=== PATIENT | male | born 1965 | race Caucasian/White ===

== ENCOUNTER 2019-09-14 09:01 | Emergency (ER) | payer MEDICARE ==
[2019-09-14] MEDS ORDERED: Ativan 2 MG/1 ML VIAL ONE (09:12)
[2019-09-14] MEDS ORDERED: Ativan 2 MG/1 ML VIAL IV ONE (09:12)
--- NOTE | 2019-09-14 09:20 | ERPHSYRPT ---
- History of Present Illness Time Seen by Provider: 09/14/19 09:15 Source: patient, EMS Exam Limitations: clinical condition Physician History: This is a 53-year-old obese gentleman who has a history of oxygen dependent COPD and congestive heart failure who called the ambulance service to pick him up to take him to the hospital because of worsening shortness of breath that began yesterday. Patient's oxygenation was 80% on 4 L nasal cannula at home. Is not a smoker. He denies chest pain. Ordinarily, the patient gets transferred to [facility]. However he was unhappy with their care the last time and wanted transferred to [facility]. Received nitroglycerin because of his symptoms and systolic blood pressure of over 200, Solu-Medrol 125 mg intravenously and 40 mg of Lasix intravenously. Patient's oxygenation on 4 L nasal cannula improved with the above treatment and on arrival to the emergency department his oxygen saturation was 94%. Patient has a pacemaker in place. Timing/Duration: yesterday Activities at Onset: none Severity of Dyspnea-Max: moderate Severity of Dyspnea-Current: moderate Possible Cause: frequent episodes Modifying Factors: Improves With: exertion, oxygen Associated Symptoms: anxiety, No chest pain/discomfort Allergies/Adverse Reactions: No Known Drug Allergies Allergy (Unverified 09/14/19 09:24) Home Medications: Albuterol 2.5 mg/3 ml Neb [Proventil 2.5 mg/3 ml Neb] 2.5 mg IH Q6HPRN PRN 09/14/19 [History] Albuterol 8 gm Mdi Hfa [Ventolin Hfa MDI] 1 puff IH QID 09/14/19 [History] Amlodipine Besylate [Norvasc] 10 mg PO DAILY 09/14/19 [History] Aspirin EC 81 mg [Ecotrin 81 mg] 81 mg PO DAILY 09/14/19 [History] Famotidine [Pepcid] 40 mg PO DAILY 09/14/19 [History] Furosemide 40 mg [Lasix 40 MG] 40 mg PO DAILY 09/14/19 [History] Ibuprofen 600 mg PO Q6H 09/14/19 [History] Icosapent Ethyl [Vascepa] 1 gm PO BID 09/14/19 [History] Insulin Glargine,Hum.rec.anlog [Lantus Solostar] 80 units SQ HS 09/14/19 [ History] Ipratropium/Albuterol Sulfate [Combivent Inhaler] 1 each NEB QID PRN 09/14/19 [ History] Iron 65 mg PO DAILY 09/14/19 [History] Magnesium Chloride [Slow-Mag] 2 each PO DAILY 09/14/19 [History] Rosuvastatin Calcium 10 mg PO HS 09/14/19 [History] Sacubitril/Valsartan [Entresto 24 mg-26 mg Tablet] 1 each PO BID 09/14/19 [ History] Sertraline HCl 50 mg [Zoloft 50 mg Tablet] 100 mg PO DAILY 09/14/19 [History ] Suvorexant [Belsomra] 15 mg PO HS 09/14/19 [History] Travel Risk - International Travel Have you traveled outside of the country in past 3 weeks: No - Coronavirus Screening Are you exhibiting any of the following symptoms?: Yes Symptoms: Shortness of Breath Close contact with a COVID-19 positive Pt in past 14-21 Days: No - Review of Systems Constitutional: No Symptoms Eyes: No Symptoms Ears, Nose, & Throat: No Symptoms Respiratory: Dyspnea Cardiac: No Chest Pain Abdominal/Gastrointestinal: No Symptoms Genitourinary Symptoms: No Symptoms Musculoskeletal: No Symptoms Skin: No Symptoms Neurological: No Symptoms Psychological: Anxiety Endocrine: No Symptoms Hematologic/Lymphatic: No Symptoms Immunological/Allergic: No Symptoms All Other Systems: Reviewed and Negative - Past Medical History Pertinent Past Medical History: Yes Neurological History: No Pertinent History ENT History: No Pertinent History Cardiac History: Coronary Artery Disease, Hypertension Respiratory History: CHF, COPD Endocrine Medical History: No Pertinent History Musculoskeletal History: No Pertinent History GI Medical History: No Pertinent History History: No Pertinent History Psycho-Social History: No Pertinent History Male Reproductive Disorders: No Pertinent History - Past Surgical History Cardiac: Pacemaker Respiratory: No Pertinent History Gastrointestinal: No Pertinent History Genitourinary: No Pertinent History Musculoskeletal: No Pertinent History Male Surgical History: No Pertinent History - Social History Smoking Status: Never smoker - Nursing Vital Signs Nursing Vital Signs: Initial Vital Signs Temperature 99.3 F 09/14/19 09:04 Pulse Rate 106 H 09/14/19 09:04 Respiratory Rate 28 H 09/14/19 09:04 Blood Pressure 186/121 09/14/19 09:04 O2 Sat by Pulse Oximetry 98 09/14/19 09:04 Pain Scale Pain Intensity 4 - Physical Exam General Appearance: moderate distress, alert, obese Eye Exam: PERRL/EOMI, eyes nml inspection Ears, Nose, Throat Exam: hearing grossly normal, normal ENT inspection, normal pharynx Neck Exam: normal inspection, non-tender, supple, full range of motion Respiratory Exam: lungs clear, respiratory distress, airway intact, No chest tenderness, No rhonchi, No wheezing, No stridor Cardiovascular/Chest Exam: tachycardia Abdominal/Gastrointestinal Exam: soft, normal bowel sounds, No tenderness, No guarding, No rebound Rectal Exam: not done Extremity Exam: non-tender, normal range of motion, normal inspection, pedal edema (Mild bilateral ankle and feet) Neurologic Exam: alert, oriented x 3, 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 There is ventricular premature complex present and borderline T wave abnormalities.) Ordered Tests: Active Orders 24 hr Category Date Time Status Assistant Media Planner STAT Care 09/14/19 09:13 Active EKG-ER Only STAT Care 09/14/19 09:12 Active IV Insertion STAT Care 09/14/19 09:12 Active Oxygen-ED Only Nasal Cannula 6 lpm Care 09/14/19 09:02 Active Pulse Oximetry (ED) STAT Care 09/14/19 09:12 Active CHEST 1 VIEW (PORTABLE) Stat Exams 09/14/19 09:13 Completed ARTERIAL BLOOD GASES Stat Lab 09/14/19 09:50 Completed BLOOD CULTURE Stat Lab 09/14/19 10:54 Ordered CBC W DIFF Stat Lab 09/14/19 09:12 Completed CMP Stat Lab 09/14/19 09:30 Completed Lactic Acid Stat Lab 09/14/19 09:50 Completed NT PRO BNP Stat Lab 09/14/19 09:30 Completed PROTIME WITH INR Stat Lab 09/14/19 09:12 Completed TROPONIN Q3H Lab 09/14/19 09:30 Completed TROPONIN Q3H Lab 09/14/19 12:15 Ordered TROPONIN Q3H Lab 09/14/19 15:15 Ordered TROPONIN Q3H Lab 09/14/19 18:15 Ordered TROPONIN Q3H Lab 09/14/19 21:15 Ordered UA W/RFX UR CULTURE Stat Lab 09/14/19 10:00 Completed BiPap/CPAP STAT RT 09/14/19 09:12 Active Medication Summary Generic Name Dose Route Start Last Admin Trade Name Cesia PRN Reason Stop Dose Admin Ceftriaxone Sodium/Dextrose 1 g in 50 mls @ 100 mls/hr 09/14/19 10:40 10:56 Rocephin 1 Gm-D5w 50 Ml Bag IV 09/14/19 11:09 100 mls/hr STAT STA 100 mls/hr Administration Discontinued Medications Generic Name Dose Route Start Last Admin Trade Name Yevgeniyq PRN Reason Stop Dose Admin Clonidine 0.2 mg 09/14/19 09:46 09/14/19 10:09 Catapres 0.1 Mg PO 09/14/19 09:47 0.2 mg STAT ONE Administration Clonidine Confirm 09/14/19 10:07 Catapres 0.1 Mg Administered 09/14/19 10:08 Dose 0.2 mg .ROUTE .STK-MED ONE Ceftriaxone Sodium/Dextrose Confirm 09/14/19 10:53 Rocephin 1 Gm-D5w 50 Ml Bag Administered 09/14/19 10:54 Dose 1 g in 50 mls @ ud IV .STK-MED ONE Insulin Human Regular 18 unit 09/14/19 10:28 09/14/19 10:40 Novolin R IV 09/14/19 10:29 18 unit STAT ONE Administration Insulin Human Regular Confirm 09/14/19 10:36 Humulin R Administered 09/14/19 10:37 Dose 18 unit .ROUTE .STK-MED ONE Lorazepam Confirm 09/14/19 09:12 Ativan 2 Mg/1 Ml Vial Administered 09/14/19 09:13 Dose 2 mg .ROUTE .STK-MED ONE Lorazepam 1 mg 09/14/19 09:12 09/14/19 09:22 Ativan 2 Mg/1 Ml Vial IV 09/14/19 09:13 1 mg STAT ONE Administration Metoprolol Tartrate 5 mg 09/14/19 10:29 09/14/19 10:41 Lopressor 5 Mg/5 Ml Injection IV 09/14/19 10:30 5 mg STAT ONE Administration Metoprolol Tartrate Confirm 09/14/19 10:35 Lopressor 5 Mg/5 Ml Injection Administered 09/14/19 10:36 Dose 5 mg IV .STK-MED ONE Lab/Rad Data: Laboratory Result Diagrams 09/14/19 09:12 09/14/19 09:30 Laboratory Results 09/14/19 09/14/19 09/14/19 Range/Units 10:00 09:50 09:30 WBC (4.0-10.5) K/mm3 RBC (4.1-5.6) M/mm3 Hgb (12.5-18.0) gm/dl Hct (42-50) % MCV (78-100) fl MCH (26-32) pg MCHC (32-36) g/dl RDW (11.5-14.0) % Plt Count (150-450) K/mm3 MPV (7.5-11.0) fl Gran % (36.0-66.0) % Eos # (Auto) (0-0.5) Absolute Lymphs (auto) (1.0-4.6) Absolute Monos (auto) (0.0-1.3) Lymphocytes % (24.0-44.0) % Monocytes % (0.0-12.0) % Eosinophils % (0.00-5.0) % Basophils % (0.0-0.4) % Absolute Granulocytes (1.4-6.9) Basophils # (0-0.4) PT (8.83-12.87) SECONDS INR (0.8-3.0) Puncture Site VBG pCO2 61 H* (35-45) mmHg pO2 34 L* (75-100) mmHg Base Excess 7.0 H (-2.0-2.0) O2 Saturation 61.9 L (94-100) g/dF ABG pH 7.36 (7.35-7.45) ABG HCO3 34.5 H* (22-28) ABG O2 Sat (Measured) 64.1 L (95-100) % Jeff Test NOT APPLICABLE Hemoglobin 13.5 Carboxyhemoglobin 2.6 (0.0-6.9) % THgb Methemoglobin 0.8 L (1.4-1.5) % Temperature 37.0 C POC O2 Flow Rate 32 % Sodium (137-145) mmol/L Potassium 4.3 (3.5-5.1) mmol/L Chloride (98-107) mmol/L Carbon Dioxide (22-30) mmol/L Anion Gap (5-15) MEQ/L BUN (9-20) mg/dL Creatinine (0.66-1.25) mg/dL Estimated GFR ML/MIN Glucose (74-106) mg/dL Lactic Acid 2.0 (0.4-2.0) Calcium (8.4-10.2) mg/dL Total Bilirubin (0.2-1.3) mg/dL AST (17-59) U/L ALT (0-50) U/L Alkaline Phosphatase (38-126) U/L Troponin I 0.071 H* (0.000-0.034) ng/mL NT-Pro-B Natriuret Pep (0-900) pg/mL Serum Total Protein (6.3-8.2) g/dL Albumin (3.5-5.0) g/dL Urine Color STRAW (YELLOW) Urine Appearance CLEAR (CLEAR) Urine pH 6.0 (5-6) Ur Specific Clayton 1.013 (1.005-1.025) Urine Protein NEGATIVE (Negative) Urine Ketones NEGATIVE (NEGATIVE) Urine Blood NEGATIVE (0-5) Renato/ul Urine Nitrite NEGATIVE (NEGATIVE) Urine Bilirubin NEGATIVE (NEGATIVE) Urine Urobilinogen NEGATIVE (0-1) mg/dL Ur Leukocyte Esterase NEGATIVE (NEGATIVE) Urine WBC (Auto) NONE (0-5) /HPF Urine RBC (Auto) NONE (0-2) /HPF U Epithel Cells (Auto) NONE (FEW) /HPF Urine Bacteria (Auto) NONE (NEGATIVE) /HPF Urine Culture Reflexed NO (NO) Urine Glucose >=500 (NEGATIVE) mg/dL 09/14/19 09/14/19 09/14/19 Range/Units 09:30 09:12 09:12 WBC 6.6 (4.0-10.5) K/mm3 RBC 4.44 (4.1-5.6) M/mm3 Hgb 13.2 (12.5-18.0) gm/dl Hct 39.6 L (42-50) % MCV 89.2 (78-100) fl MCH 29.7 (26-32) pg MCHC 33.3 (32-36) g/dl RDW 13.7 (11.5-14.0) % Plt Count 161 (150-450) K/mm3 MPV 9.7 (7.5-11.0) fl Gran % 73.7 H (36.0-66.0) % Eos # (Auto) 0.06 (0-0.5) Absolute Lymphs (auto) 1.38 (1.0-4.6) Absolute Monos (auto) 0.27 (0.0-1.3) Lymphocytes % 21.0 L (24.0-44.0) % Monocytes % 4.1 (0.0-12.0) % Eosinophils % 0.9 (0.00-5.0) % Basophils % 0.3 (0.0-0.4) % Absolute Granulocytes 4.85 (1.4-6.9) Basophils # 0.02 (0-0.4) PT 10.2 (8.83-12.87) SECONDS INR 0.90 (0.8-3.0) Puncture Site pCO2 (35-45) mmHg pO2 (75-100) mmHg Base Excess (-2.0-2.0) O2 Saturation (94-100) g/dF ABG pH (7.35-7.45) ABG HCO3 (22-28) ABG O2 Sat (Measured) (95-100) % Jeff Test Hemoglobin Carboxyhemoglobin (0.0-6.9) % THgb Methemoglobin (1.4-1.5) % Temperature C POC O2 Flow Rate % Sodium 137 (137-145) mmol/L Potassium 4.4 (3.5-5.1) mmol/L Chloride 95 L (98-107) mmol/L Carbon Dioxide 31 H (22-30) mmol/L Anion Gap 15.1 H (5-15) MEQ/L BUN 19 (9-20) mg/dL Creatinine 0.80 (0.66-1.25) mg/dL Estimated GFR > 60.0 ML/MIN Glucose 596 H* (74-106) mg/dL Lactic Acid (0.4-2.0) Calcium 9.6 (8.4-10.2) mg/dL Total Bilirubin 0.60 (0.2-1.3) mg/dL AST 27 (17-59) U/L ALT 26 (0-50) U/L Alkaline Phosphatase 73 (38-126) U/L Troponin I (0.000-0.034) ng/mL NT-Pro-B Natriuret Pep 1390 H (0-900) pg/mL Serum Total Protein 6.8 (6.3-8.2) g/dL Albumin 4.0 (3.5-5.0) g/dL Urine Color (YELLOW) Urine Appearance (CLEAR) Urine pH (5-6) Ur Specific Clayton (1.005-1.025) Urine Protein (Negative) Urine Ketones (NEGATIVE) Urine Blood (0-5) Renato/ul Urine Nitrite (NEGATIVE) Urine Bilirubin (NEGATIVE) Urine Urobilinogen (0-1) mg/dL Ur Leukocyte Esterase (NEGATIVE) Urine WBC (Auto) (0-5) /HPF Urine RBC (Auto) (0-2) /HPF U Epithel Cells (Auto) (FEW) /HPF Urine Bacteria (Auto) (NEGATIVE) /HPF Urine Culture Reflexed (NO) Urine Glucose (NEGATIVE) mg/dL - Progress Progress: improved, re-examined Air Movement: good Progress Note: 09/14/19 10:52 Chest x-ray reveals bibasilar infiltrates/atelectasis. There are small bibasilar pleural effusions present. There is cardiomegaly consistent with congestive heart failure. Superimposed pneumonia cannot be excluded. 09/14/19 11:[address] Willett at [facility] emergency department. I reviewed the patient history, condition, laboratory data, EKG results and x-ray findings with him. He accepts the patient for transfer. Blood Culture(s) Obtained: Yes Antibiotics given: Yes Counseled pt/family regarding: lab results, diagnosis, rad results - Departure Departure Disposition: Transfer Clinical Impression: Hypoxia, Hypertensive urgency, CHF (congestive heart failure), Elevated troponin, Pneumonia, Hyperglycemia Condition: Fair Critical Care Time: Yes Critical Care Time(excluding separately billable procedures): Critical 30-74 mins Referrals: EBENEZER WEST NP [Primary Care Provider] - Instructions: Heart Failure
[2019-09-14 09:46] LABS: INR 0.9 (0.8-3.0); PROTIME 10.2 SECONDS (8.83-12.87)
[2019-09-14] MEDS ORDERED: Catapres 0.1 MG PO ONE (09:46)
[2019-09-14 09:53] LABS: Absolute Neutrophil Ct (ANC) 4.85 (1.4-6.9); BASOPHIL % 0.3 % (0.0-0.4); Basophil (Absolute #) 0.02 (0-0.4); Eosinophil % 0.9 % (0.00-5.0); Eosinophil (Absolute #) 0.06 (0-0.5); Hematocrit 39.6 % (42-50); Hemoglobin 13.2 gm/dl (12.5-18.0); Lymphocyte (Absolute #) 1.38 (1.0-4.6); Mean Cell Volume 89.2 fl (78-100); Mean Corpuscular Hemoglobin 29.7 pg (26-32); Mean Corpuscular Hgb Concent. 33.3 g/dl (32-36); Mean Platelet Volume 9.7 fl (7.5-11.0); Monocyte (Absolute #) 0.27 (0.0-1.3); Monocytes % 4.1 % (0.0-12.0); Neutrophil % 73.7 % (36.0-66.0); Platelet Count 161 K/mm3 (150-450); Red Blood Count 4.44 M/mm3 (4.1-5.6); Red Cell Distribution Width 13.7 % (11.5-14.0); White Blood Count 6.6 K/mm3 (4.0-10.5)
[2019-09-14 09:56] LABS: ABG HEMOGLOBIN 13.5; ABG POTASSIUM 4.3 (3.5-5.1); ARTERIAL BLD GAS O2 SATURATION 64.1 % (95-100); ARTERIAL BLOOD GAS FIO2 32 %; ARTERIAL BLOOD GAS pH 7.36 (7.35-7.45); CARBOXYHEMOGLOBIN 2.6 % THgb (0.0-6.9); HCO3- 34.5 (22-28); HGB O2 SAT 61.9 g/dF (94-100); Methhemoglobin 0.8 % (1.4-1.5)
[2019-09-14 09:57] LABS: ABG SITE VBG; ARTERIAL BLOOD GAS PCO2 61 mmHg (35-45); ARTERIAL BLOOD GAS PO2 34 mmHg (75-100)
--- NOTE | 2019-09-14 09:57 | XRAY ---
Indication: Short of breath. Comparison: None Portable chest demonstrates borderline cardiomegaly with left-sided AICD, bibasilar infiltrates/atelectasis, and small bibasilar effusions. Rule out cardiac decompensation/CHF. Superimposed pneumonia not completely excluded. Bony thorax intact with mild degenerative changes.
[2019-09-14 10:00] LABS: ALKALINE PHOSPHATASE 73 U/L (38-126); ANION GAP 15.1 MEQ/L (5-15); BLOOD UREA NITROGEN 19 mg/dL (9-20); CHLORIDE 95 mmol/L (98-107); Calcium 9.6 mg/dL (8.4-10.2); Carbon Dioxide 31 mmol/L (22-30); NT PRO BNP 1390 pg/mL (0-900); Potassium 4.4 mmol/L (3.5-5.1); SGOT/AST 27 U/L (17-59); SGPT/ALT 26 U/L (0-50); SODIUM 137 mmol/L (137-145); Total Protein 6.8 g/dL (6.3-8.2)
[2019-09-14 10:01] LABS: Glucose 596 mg/dL (74-106)
[2019-09-14 10:06] LABS: Appearance CLEAR (CLEAR); Bilirubin NEGATIVE (NEGATIVE); Blood NEGATIVE Ery/ul (0-5); Glucose >=500 mg/dL (NEGATIVE); Ketones NEGATIVE (NEGATIVE); Leukocyte Esterase NEGATIVE (NEGATIVE); Nitrite NEGATIVE (NEGATIVE); Protein,Urine Dip NEGATIVE (Negative); Specific Gravity 1.013 (1.005-1.025); Urobilinogen NEGATIVE mg/dL (0-1)
[2019-09-14] MEDS ORDERED: Catapres 0.1 MG ONE (10:07)
[2019-09-14] MEDS ORDERED: NovoLIN R IV ONE (10:28)
[2019-09-14] MEDS ORDERED: LOPRESSOR 5 MG/5 ML INJECTION IV ONE ×2 (10:29→10:35)
[2019-09-14] MEDS ORDERED: HUMULIN R ONE (10:36)
[2019-09-14] MEDS ORDERED: ROCEPHIN 1 Gm-D5w 50 ml Bag** 1 G/50 ML IVPB IV STA (10:40)
[2019-09-14 10:51] VITALS: O2SAT 97
[2019-09-14] MEDS ORDERED: ROCEPHIN 1 Gm-D5w 50 ml Bag** 1 G/50 ML IVPB IV ONE (10:53)
[2019-09-14 11:27] VITALS: BP 164/107; PULSE 108
== END 2019-09-14 11:26 | disposition short-term general hospital (02) ==
LOC: ED 09:01
DX: R09.02 Hypoxemia (principal); I16.0 Hypertensive urgency; I50.9 Heart failure, unspecified; R79.89 Other specified abnormal findings of blood chemistry; J18.9 Pneumonia, unspecified organism; R73.9 Hyperglycemia, unspecified; I10 Essential (primary) hypertension
CPT/HCPCS: 36000; 36415; 36600; 71045; 80053; 81001; 82375; 82803; 82962; 83605; 83880; 84484; 85025; 85610; 93005; 93041; 94002; 94760; 96365; 96374; 96375; 99285; 99291; J0696; J1815; J2060; A9270-GY

== ENCOUNTER 2019-09-23 23:02 | Emergency (ER) | payer MEDICARE ==
[2019-09-23 23:31] LABS: A-aADO2 96; ABG HEMOGLOBIN 13.7; ABG POTASSIUM 4.6 (3.5-5.1); ABG SITE LEFT RADIAL; ALLEN TEST OK? y; ARTERIAL BLD GAS O2 SATURATION 98.3 % (95-100); ARTERIAL BLOOD GAS BASE EXCESS 3.2 (-2.0-2.0); ARTERIAL BLOOD GAS FIO2 36 %; ARTERIAL BLOOD GAS PCO2 53 mmHg (35-45); ARTERIAL BLOOD GAS PO2 94 mmHg (75-100); ARTERIAL BLOOD GAS pH 7.36 (7.35-7.45); CARBOXYHEMOGLOBIN 1.8 % THgb (0.0-6.9); HCO3- 29.9 (22-28); HGB O2 SAT 95.8 g/dF (94-100); Methhemoglobin 0.7 % (1.4-1.5); paO2 pAO1 0.49
[2019-09-23] MEDS ORDERED: DUONEB 0.5-3 MG/3 ml Neb IH ONE ×2 (23:38→23:58)
[2019-09-23 23:53] LABS: Absolute Neutrophil Ct (ANC) 4.84 (1.4-6.9); BASOPHIL % 0.4 % (0.0-0.4); Basophil (Absolute #) 0.03 (0-0.4); Eosinophil % 2.1 % (0.00-5.0); Eosinophil (Absolute #) 0.15 (0-0.5); Hematocrit 43.1 % (42-50); Hemoglobin 14.2 gm/dl (12.5-18.0); Lymphocyte (Absolute #) 1.67 (1.0-4.6); Lymphocytes % 22.8 % (24.0-44.0); Mean Corpuscular Hemoglobin 29.6 pg (26-32); Mean Corpuscular Hgb Concent. 32.9 g/dl (32-36); Mean Platelet Volume 10.2 fl (7.5-11.0); Monocyte (Absolute #) 0.62 (0.0-1.3); Monocytes % 8.5 % (0.0-12.0); Neutrophil % 66.2 % (36.0-66.0); Platelet Count 185 K/mm3 (150-450); Red Blood Count 4.79 M/mm3 (4.1-5.6); Red Cell Distribution Width 13.8 % (11.5-14.0); White Blood Count 7.3 K/mm3 (4.0-10.5)
--- NOTE | 2019-09-23 23:55 | ERPHSYRPT ---
- History of Present Illness Time Seen by Provider: 09/23/19 23:10 Source: patient Exam Limitations: no limitations Patient Subjective Stated Complaint: "I started having a hard time breathing at home." Triage Nursing Assessment: Pt presented alert et oriented via [facility] ambulance. Pt presetend on CPAP. Per EMS pt exhibted sifnificant dyspnea at home despite use of home oxygen. Pt reported wearing 3 L/min via NC all the time at home. Pt denied chest pain, nausea/vomiting. Pupils 3mm reactive. Oral mucosa pink/moist. Neck supple non-tender without noted lymphadenopathy. Symmetrical chest expansion. Lungs with diffuse wheezes in the upper lobes and diminished lung sounds in the bilateral lower lobes. Abdomen obese non-tender. No noted dependent edema. Radial pulses equal bilateral. Physician History: Patient is a 53-year-old male with history of CHF and COPD presents to our ED via [facility] ambulance with complaints of shortness of breath. Symptoms started approximately 2 to 3 hours prior to arrival. Patient states that he became short of breath but did not experience any chest pain. Patient uses oxygen via nasal cannula 24 hours a day. His oxygen requirement is 3 L. Prior to arrival ambulance administered a dose of Solu-Medrol,, and albuterol nebulizer and BiPAP support. Upon arrival patient stated he felt much better. Patient was no longer in distress. No associated nausea or vomiting. No diarrhea. No rash. No fever. No trauma. Symptoms are constant. Symptoms are mild to moderate intensity. No specific worsening improving factors. EMS reports that patient did not have air conditioning in his home. They believe that this may have worsened or exacerbated his COPD. Timing/Duration: today Activities at Onset: rest Severity of Dyspnea-Max: moderate Severity of Dyspnea-Current: mild Possible Cause: occasional episodes Modifying Factors: Improves With: albuterol nebulizer Associated Symptoms: cough, wheezing, No fever, No weakness, No ankle swelling Allergies/Adverse Reactions: No Known Drug Allergies Allergy (Unverified 09/23/19 23:25) Home Medications: Albuterol 2.5 mg/3 ml Neb [Proventil 2.5 mg/3 ml Neb] 2.5 mg IH Q6HPRN PRN 09/14/19 [History] Albuterol 8 gm Mdi Hfa [Ventolin Hfa MDI] 1 puff IH QID 09/14/19 [History] Amlodipine Besylate [Norvasc] 10 mg PO DAILY 09/14/19 [History] Aspirin EC 81 mg [Ecotrin 81 mg] 81 mg PO DAILY 09/14/19 [History] Famotidine [Pepcid] 40 mg PO DAILY 09/14/19 [History] Furosemide 40 mg [Lasix 40 MG] 40 mg PO DAILY 09/14/19 [History] Ibuprofen 600 mg PO Q6H 09/14/19 [History] Icosapent Ethyl [Vascepa] 1 gm PO BID 09/14/19 [History] Insulin Glargine,Hum.rec.anlog [Lantus Solostar] 80 units SQ HS 09/14/19 [History] Ipratropium/Albuterol Sulfate [Combivent Inhaler] 1 each NEB QID PRN 09/14/19 [History] Iron 65 mg PO DAILY 09/14/19 [History] Magnesium Chloride [Slow-Mag] 2 each PO DAILY 09/14/19 [History] Rosuvastatin Calcium 10 mg PO HS 09/14/19 [History] Sacubitril/Valsartan [Entresto 24 mg-26 mg Tablet] 1 each PO BID 09/14/19 [History] Sertraline HCl 50 mg [Zoloft 50 mg Tablet] 100 mg PO DAILY 09/14/19 [History] Suvorexant [Belsomra] 15 mg PO HS 09/14/19 [History] Hx Tetanus, Diphtheria Vaccination/Date Given: No Hx Influenza Vaccination/Date Given: Yes Hx Pneumococcal Vaccination/Date Given: (unk) Travel Risk - International Travel Have you traveled outside of the country in past 3 weeks: No If Yes, where;: N - Coronavirus Screening Are you exhibiting any of the following symptoms?: No Close contact with a COVID-19 positive Pt in past 14-21 Days: No - Review of Systems Constitutional: No Symptoms, No Fever, No Chills Eyes: No Symptoms Ears, Nose, & Throat: No Symptoms Respiratory: No Symptoms, No Cough, No Dyspnea Cardiac: No Symptoms, No Chest Pain, No Edema, No Syncope Abdominal/Gastrointestinal: No Symptoms, No Abdominal Pain, No Nausea, No Vomiting, No Diarrhea Genitourinary Symptoms: No Symptoms, No Dysuria Musculoskeletal: No Symptoms, No Back Pain, No Neck Pain Skin: No Symptoms, No Rash Neurological: No Symptoms, No Dizziness, No Focal Weakness, No Sensory Changes Psychological: No Symptoms Endocrine: No Symptoms Hematologic/Lymphatic: No Symptoms Immunological/Allergic: No Symptoms All Other Systems: Reviewed and Negative - Past Medical History Pertinent Past Medical History: Yes Neurological History: No Pertinent History ENT History: No Pertinent History Cardiac History: Coronary Artery Disease, Hypertension Respiratory History: CHF, COPD Endocrine Medical History: No Pertinent History Musculoskeletal History: No Pertinent History GI Medical History: No Pertinent History History: No Pertinent History Psycho-Social History: No Pertinent History Male Reproductive Disorders: No Pertinent History Other Medical History: mitral valve prolapse - Past Surgical History Past Surgical History: Yes Cardiac: Pacemaker Respiratory: No Pertinent History Gastrointestinal: No Pertinent History Genitourinary: No Pertinent History Musculoskeletal: No Pertinent History Male Surgical History: No Pertinent History - Social History Smoking Status: Never smoker Exposure to second hand smoke: No Drug Use: none Patient Lives Alone: No - Nursing Vital Signs Nursing Vital Signs: Initial Vital Signs Temperature 98 F 09/23/19 23:02 Pulse Rate 117 H 09/23/19 23:02 Respiratory Rate 24 09/23/19 23:02 Blood Pressure 198/130 09/23/19 23:02 O2 Sat by Pulse Oximetry 96 09/23/19 23:02 - Physical Exam General Appearance: no apparent distress, alert Eye Exam: PERRL/EOMI Ears, Nose, Throat Exam: hearing grossly normal, normal ENT inspection, normal pharynx, abnormal TM (R), abnormal TM (L) Neck Exam: normal inspection, supple Respiratory Exam: normal breath sounds, respiratory distress, accessory muscle use, crackles/rales, wheezing Cardiovascular/Chest Exam: normal heart sounds, regular rate/rhythm, normal peripheral pulses, No edema Abdominal/Gastrointestinal Exam: soft, other, No tenderness, No distention, No mass Rectal Exam: deferred (Views abdomen) Extremity Exam: non-tender, normal range of motion, normal inspection, no calf tenderness, no pedal edema, swelling (Bilateral lower extremity 2+ pitting edema.) Peripheral Pulses Exam: dorsalis-pedis (R): 2+, dorsalis-pedis (L): 2+ Neurologic Exam: alert, oriented x 3, cooperative, an/sqq 89(v)15 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 II-XII nml as tested, sensation nml, No motor deficits Skin Exam: normal color, warm, No dry Lymphatic Exam: adenopathy SpO2 Interpretation: normal SpO2: 97 O2 Delivery: BiPap/CPAP - Course Nursing assessment & vital signs reviewed: Yes EKG Interpreted by Me: RATE ([id number]), Sinus Tach, Right [place] Deviation, NORMAL INTERVALS - Radiology Exams Chest X-ray Interpretation: Interpreted by me (Bilateral pulmonary congestion left pleural effusion cardiomegaly pacemaker AICD/pacemaker.) Ordered Tests: Active Orders 24 hr Category Date Time Status Inspection Supervisor STAT Care 09/23/19 23:20 Active EKG-ER Only STAT Care 09/23/19 23:18 Active IV Insertion STAT Care 09/23/19 23:18 Active Pulse Oximetry (ED) STAT Care 09/23/19 23:18 Active CHEST 1 VIEW (PORTABLE) Stat Exams 09/23/19 23:20 Taken ABG [ARTERIAL BLOOD GASES] Stat Lab 09/23/19 23:30 Completed CBC W DIFF Stat Lab 09/23/19 23:41 Completed CMP Stat Lab 09/23/19 23:41 Completed MAGNESIUM Stat Lab 09/23/19 23:41 Completed NT PRO BNP Stat Lab 09/23/19 23:41 Completed TROPONIN Q3H Lab 09/23/19 23:41 Completed TROPONIN Q3H Lab 09/24/19 02:30 Ordered TROPONIN Q3H Lab 09/24/19 05:30 Ordered TROPONIN Q3H Lab 09/24/19 08:30 Ordered TROPONIN Q3H Lab 09/24/19 11:30 Ordered UA W/RFX UR CULTURE Stat Lab 09/23/19 23:50 Completed Respiratory Therapy Assessment DAILY RT 09/23/19 23:58 Active Medication Summary Discontinued Medications Generic Name Dose Route Start Last Admin Trade Name Freq PRN Reason Stop Dose Admin Albuterol/Ipratropium Confirm 09/23/19 23:38 Duoneb 0.5-3 Mg/3 Ml Neb Administered 09/23/19 23:39 Dose 3 ml IH .STK-MED ONE Albuterol/Ipratropium 3 ml 09/23/19 23:58 09/24/19 00:00 Duoneb 0.5-3 Mg/3 Ml Neb IH 09/23/19 23:59 3 ml STAT ONE Administration Furosemide 40 mg 06/19/20 00:40 Lasix 40 Mg/4 Ml IV 09/24/19 00:41 STAT ONE Nitroglycerin 1 gm 09/24/19 00:40 Nitro-Bid 2% Ud Packets TOP 09/24/19 00:41 STAT ONE Lab/Rad Data: Laboratory Result Diagrams 09/23/19 23:41 09/23/19 23:41 Laboratory Results 09/23/19 09/23/19 09/23/19 Range/Units 23:50 23:41 23:41 WBC (4.0-10.5) K/mm3 RBC (4.1-5.6) M/mm3 Hgb (12.5-18.0) gm/dl Hct (42-50) % MCV (78-100) fl MCH (26-32) pg MCHC (32-36) g/dl RDW (11.5-14.0) % Plt Count (150-450) K/mm3 MPV (7.5-11.0) fl Gran % (36.0-66.0) % Eos # (Auto) (0-0.5) Absolute Lymphs (auto) (1.0-4.6) Absolute Monos (auto) (0.0-1.3) Lymphocytes % (24.0-44.0) % Monocytes % (0.0-12.0) % Eosinophils % (0.00-5.0) % Basophils % (0.0-0.4) % Absolute Granulocytes (1.4-6.9) Basophils # (0-0.4) Puncture Site pCO2 (35-45) mmHg pO2 (75-100) mmHg Base Excess (-2.0-2.0) O2 Saturation (94-100) g/dF ABG pH (7.35-7.45) ABG HCO3 (22-28) ABG O2 Sat (Measured) (95-100) % Jeff Test A-a Gradient a/A Ratio Hemoglobin Carboxyhemoglobin (0.0-6.9) % THgb Methemoglobin (1.4-1.5) % Potassium 4.6 (3.5-5.1) Temperature C POC O2 Flow Rate % Sodium 136 L (137-145) mmol/L Chloride 97 L (98-107) mmol/L Carbon Dioxide 30 (22-30) mmol/L Anion Gap 13.3 (5-15) MEQ/L BUN 23 H (9-20) mg/dL Creatinine 0.89 (0.66-1.25) mg/dL Estimated GFR > 60.0 ML/MIN Glucose 447 H (74-106) mg/dL Calcium 9.5 (8.4-10.2) mg/dL Magnesium 1.9 (1.6-2.3) mg/dL Total Bilirubin 0.70 (0.2-1.3) mg/dL AST 17 (17-59) U/L ALT 20 (0-50) U/L Alkaline Phosphatase 90 (38-126) U/L Troponin I 0.072 H* (0.000-0.034) ng/mL NT-Pro-B Natriuret Pep 1730 H (0-900) pg/mL Serum Total Protein 7.1 (6.3-8.2) g/dL Albumin 4.1 (3.5-5.0) g/dL Urine Color STRAW (YELLOW) Urine Appearance CLEAR (CLEAR) Urine pH 6.0 (5-6) Ur Specific [place] 1.020 (1.005-1.025) Urine Protein 100 (Negative) Urine Ketones NEGATIVE (NEGATIVE) Urine Blood NEGATIVE (0-5) Renato/ul Urine Nitrite NEGATIVE (NEGATIVE) Urine Bilirubin NEGATIVE (NEGATIVE) Urine Urobilinogen NEGATIVE (0-1) mg/dL Ur Leukocyte Esterase NEGATIVE (NEGATIVE) Urine WBC (Auto) NONE (0-5) /HPF Urine RBC (Auto) NONE (0-2) /HPF U Epithel Cells (Auto) NONE (FEW) /HPF Urine Bacteria (Auto) NONE SEEN (NEGATIVE) /HPF Urine Culture Reflexed NO (NO) Urine Glucose >=500 (NEGATIVE) mg/dL 09/23/19 09/23/19 Range/Units 23:41 23:30 WBC 7.3 (4.0-10.5) K/mm3 RBC 4.79 (4.1-5.6) M/mm3 Hgb 14.2 (12.5-18.0) gm/dl Hct 43.1 (42-50) % MCV 90.0 (78-100) fl MCH 29.6 (26-32) pg MCHC 32.9 (32-36) g/dl RDW 13.8 (11.5-14.0) % Plt Count 185 (150-450) K/mm3 MPV 10.2 (7.5-11.0) fl Gran % 66.2 H (36.0-66.0) % Eos # (Auto) 0.15 (0-0.5) Absolute Lymphs (auto) 1.67 (1.0-4.6) Absolute Monos (auto) 0.62 (0.0-1.3) Lymphocytes % 22.8 L (24.0-44.0) % Monocytes % 8.5 (0.0-12.0) % Eosinophils % 2.1 (0.00-5.0) % Basophils % 0.4 (0.0-0.4) % Absolute Granulocytes 4.84 (1.4-6.9) Basophils # 0.03 (0-0.4) Puncture Site LEFT RADIAL pCO2 53 H (35-45) mmHg pO2 94 (75-100) mmHg Base Excess 3.2 H (-2.0-2.0) O2 Saturation 95.8 (94-100) g/dF ABG pH 7.36 (7.35-7.45) ABG HCO3 29.9 H* (22-28) ABG O2 Sat (Measured) 98.3 (95-100) % Jeff Test y A-a Gradient 96 a/A Ratio 0.49 Hemoglobin 13.7 Carboxyhemoglobin 1.8 (0.0-6.9) % THgb Methemoglobin 0.7 L (1.4-1.5) % Potassium 4.6 (3.5-5.1) Temperature 37.0 C POC O2 Flow Rate 36 % Sodium (137-145) mmol/L Chloride (98-107) mmol/L Carbon Dioxide (22-30) mmol/L Anion Gap (5-15) MEQ/L BUN (9-20) mg/dL Creatinine (0.66-1.25) mg/dL Estimated GFR ML/MIN Glucose (74-106) mg/dL Calcium (8.4-10.2) mg/dL Magnesium (1.6-2.3) mg/dL Total Bilirubin (0.2-1.3) mg/dL AST (17-59) U/L ALT (0-50) U/L Alkaline Phosphatase (38-126) U/L Troponin I (0.000-0.034) ng/mL NT-Pro-B Natriuret Pep (0-900) pg/mL Serum Total Protein (6.3-8.2) g/dL Albumin (3.5-5.0) g/dL Urine Color (YELLOW) Urine Appearance (CLEAR) Urine pH (5-6) Ur Specific [place] (1.005-1.025) Urine Protein (Negative) Urine Ketones (NEGATIVE) Urine Blood (0-5) Renato/ul Urine Nitrite (NEGATIVE) Urine Bilirubin (NEGATIVE) Urine Urobilinogen (0-1) mg/dL Ur Leukocyte Esterase (NEGATIVE) Urine WBC (Auto) (0-5) /HPF Urine RBC (Auto) (0-2) /HPF U Epithel Cells (Auto) (FEW) /HPF Urine Bacteria (Auto) (NEGATIVE) /HPF Urine Culture Reflexed (NO) Urine Glucose (NEGATIVE) mg/dL - Progress Progress: improved Air Movement: fair Progress Note: 09/24/19 00:49 Patient reassessed. He feels much better. Wheezing improved after nebulizer treatments. Work-up reveals elevated troponin likely due to heart strain from CHF exacerbation. BNP is 1730. X-ray chest shows pulmonary congestion. Lasix administered. Nitroglycerin paste applied. Patient requesting transfer to [facility] continuity of care. Case discussed with Dr. Hannah who accepts transfer to [facility]. 09/24/19 01:00 Blood Culture(s) Obtained: No Antibiotics given: No Discussed with : Other (Case discussed with Dr. Saldivar who accepts transfer for further evaluation and treatment) Will see patient in: other Counseled pt/family regarding: lab results, diagnosis, need for follow-up, rad results - Departure Departure Disposition: Transfer Clinical Impression: CHF (congestive heart failure), Elevated troponin, Hypoxia, Elevated brain natriuretic peptide (BNP) level Condition: Stable Critical Care Time: Yes Critical Care Time(excluding separately billable procedures): Critical 75-104 mins Referrals: EBENEZER WEST NP [Primary Care Provider] - Instructions: Heart Failure
[2019-09-23 23:56] LABS: Appearance CLEAR (CLEAR); Bilirubin NEGATIVE (NEGATIVE); Blood NEGATIVE Ery/ul (0-5); Glucose >=500 mg/dL (NEGATIVE); Ketones NEGATIVE (NEGATIVE); Leukocyte Esterase NEGATIVE (NEGATIVE); Nitrite NEGATIVE (NEGATIVE); Protein,Urine Dip 100 (Negative); Urobilinogen NEGATIVE mg/dL (0-1)
[2019-09-24 00:04] LABS: Bacteria NONE SEEN /HPF (NEGATIVE)
[2019-09-24 00:11] LABS: ALBUMIN 4.1 g/dL (3.5-5.0); ALKALINE PHOSPHATASE 90 U/L (38-126); ANION GAP 13.3 MEQ/L (5-15); BLOOD UREA NITROGEN 23 mg/dL (9-20); CHLORIDE 97 mmol/L (98-107); Calcium 9.5 mg/dL (8.4-10.2); Carbon Dioxide 30 mmol/L (22-30); Creatinine 1 0.89 mg/dL (0.66-1.25); Glucose 447 mg/dL (74-106); MAGNESIUM 1.9 mg/dL (1.6-2.3); NT PRO BNP 1730 pg/mL (0-900); Potassium 4.6 mmol/L (3.5-5.1); SGOT/AST 17 U/L (17-59); SGPT/ALT 20 U/L (0-50); SODIUM 136 mmol/L (137-145); Total Protein 7.1 g/dL (6.3-8.2)
[2019-09-24] MEDS ORDERED: NITRO-BID 2% UD PACKETS TOP ONE (00:40)
[2019-09-24] MEDS ORDERED: Lasix 40 MG/4 ML IV ONE (00:40)
[2019-09-24] MEDS ORDERED: BABY ASPIRIN 81 MG CHEW PO ONE (00:58)
[2019-09-24] MEDS ORDERED: Lasix 40 MG/4 ML ONE (01:00)
[2019-09-24] MEDS ORDERED: NITRO-BID 2% UD PACKETS ONE (01:00)
[2019-09-24 01:23] VITALS: BP 223/111; PULSE 56; O2SAT 93
[2019-09-24] MEDS ORDERED: BABY ASPIRIN 81 MG CHEW ONE (01:47)
--- NOTE | 2019-09-24 09:03 | XRAY ---
Indication: Short of breath. Comparison: September 14, 2019. Portable chest again demonstrates cardiomegaly with left AICD, small bibasilar effusions, and bibasilar infiltrates/atelectasis favoring cardiac decompensation. Again superimposed pneumonia not completely excluded. No new cardiopulmonary abnormalities.
== END 2019-09-24 02:00 | disposition short-term general hospital (02) ==
LOC: ED 23:02
DX: I50.9 Heart failure, unspecified (principal); R74.8 Abnormal levels of other serum enzymes; R09.02 Hypoxemia; R79.89 Other specified abnormal findings of blood chemistry; I10 Essential (primary) hypertension; I25.10 Atherosclerotic heart disease of native coronary artery without angina pectoris
CPT/HCPCS: 36000; 36415; 36600; 71045; 80053; 81001; 82375; 82803; 83735; 83880; 84484; 85025; 93005; 93041; 94640; 94760; 96374; 99285; 99291; 99292; J1940; A9270-GY